=== PATIENT | male | born 1995 ===

== ENCOUNTER 2018-03-16 18:02 | Emergency (ER) | payer MEDICAID ==
[2018-03-16 18:08] VITALS: RESP 18
--- NOTE | 2018-03-16 18:20 | ED PDOC ---
HPI: Psych/Substance Abuse Time Seen by Provider: 03/16/18 18:06 Chief Complaint (Nursing): Psychiatric Evaluation Chief Complaint (Provider): psych eval History Per: Patient, EMS Additional Complaint(s): 22 y/o male brought in by EMS for evaluation. As per EMS, patient was shoplifting in the supermarket and appeared altered at the scene. Patient awake, alert, oriented x3. Patient denies acute physical or psychiatric complaints. Denies drug/alcohol use Past Medical History Reviewed: Historical Data, Nursing Documentation, Vital Signs Vital Signs: Last Vital Signs Temp 98.8 F 03/16/18 18:05 Pulse 78 03/16/18 18:05 Resp 18 03/16/18 18:05 BP 121/80 03/16/18 18:05 Pulse Ox 99 03/16/18 18:05 - Medical History PMH: No Chronic Diseases - Surgical History Surgical History: No Surg Hx - Family History Family History: States: No Known Family Hx - Social History Current smoker - smoking cessation education provided: No Alcohol: Occasional Drugs: Denies - Allergies Allergies/Adverse Reactions: Allergies Allergy/AdvReac Type Severity Reaction Status Date / Time Unobtainable Allergy Verified 03/16/18 18:17 Review of Systems ROS Statement: Except As Marked, All Systems Reviewed And Found Negative Physical Exam - Reviewed Nursing Documentation Reviewed: Yes Vital Signs Reviewed: Yes - Physical Exam Appears: Positive for: Well, Non-toxic, No Acute Distress Head Exam: Positive for: ATRAUMATIC, NORMAL INSPECTION, NORMOCEPHALIC Skin: Positive for: Normal Color Eye Exam: Positive for: Normal appearance ENT: Positive for: Normal ENT Inspection Cardiovascular/Chest: Positive for: Regular Rate, Rhythm Respiratory: Positive for: Normal Breath Sounds Gastrointestinal/Abdominal: Positive for: Normal Exam Back: Positive for: Normal Inspection Extremity: Positive for: Normal ROM Neurologic/Psych: Positive for: Alert, Oriented (x3) - ECG O2 Sat by Pulse Oximetry: 99 - Progress ED Course And Treament: -accucheck -urine drug screen -crisis eval Patient evaluated by coke worker; does not meet criteria for admission at this time as per Dr. Pak Patient requires no further intervention in the ED and is stable for discharge at this time Return precautions given Sister here to take patient home Disposition - Clinical Impression Clinical Impression: Cognitive communication deficit - Patient ED Disposition Is Patient to be Admitted: No Counseled Patient/Family Regarding: Studies Performed, Diagnosis, Need For Followup - Disposition Disposition: Routine/Home Disposition Time: 21:13 Condition: STABLE
[2018-03-16 18:54] LABS: BARBITURATES, UR NEGATIVE (NEGATIVE); BENZODIAZEPINES, UR NEGATIVE (NEGATIVE); OPIATES, UR NEGATIVE (NEGATIVE); PHENCYCLIDINE, UR NEGATIVE (NEGATIVE)
[2018-03-16 22:12] VITALS: BP 120/78; PULSE 80; TEMP 98; O2SAT 100
== END 2018-03-16 22:13 | disposition home or self-care (01) ==
LOC: H.ER 18:02
DX: R41.841 Cognitive communication deficit (principal); Z00.8 Encounter for other general examination

== ENCOUNTER 2018-04-04 09:03 | Emergency (ER) | payer MEDICAID ==
[2018-04-04 09:07] VITALS: BP 131/76; PULSE 78; RESP 18; TEMP 98.4; O2SAT 99
--- NOTE | 2018-04-04 10:36 | ED PDOC ---
HPI: Psych/Substance Abuse Time Seen by Provider: 04/04/18 09:17 Chief Complaint (Nursing): Psychiatric Evaluation Chief Complaint (Provider): Psychiatric Evaluation History Per: Patient, EMS History/Exam Limitations: no limitations Onset/Duration Of Symptoms: Mins Current Symptoms Are (Timing): Still Present Additional Complaint(s): Patient is a 22 y/o male with a PMHx of schizophrenia who was brought into the ED by EMS for psychiatric evaluation. EMS states patient was reported acting bizarre in a [employer]. Patient denies physical complaint and suicidal or homi cidal ideation. Of note, patient does not take any medication for his schizophrenia. PCP: None Provided Past Medical History Reviewed: Historical Data, Nursing Documentation, Vital Signs Vital Signs: Last Vital Signs Temp 98.4 F 04/04/18 09:06 Pulse 78 04/04/18 09:06 Resp 18 04/04/18 09:06 BP 131/76 04/04/18 09:06 Pulse Ox 99 04/04/18 09:06 - Medical History PMH: Schizophrenia - Surgical History Surgical History: No Surg Hx - Family History Family History: States: No Known Family Hx - Allergies Allergies/Adverse Reactions: Allergies Allergy/AdvReac Type Severity Reaction Status Date / Time No Known Allergies Allergy Verified 04/04/18 10:36 Review of Systems Constitutional: Negative for: Other (physical complaints) Psych: Negative for: Suicidal ideation (or homicidal ideation) Physical Exam - Reviewed Nursing Documentation Reviewed: Yes Vital Signs Reviewed: Yes - Physical Exam Appears: Positive for: Non-toxic, No Acute Distress Head Exam: Positive for: ATRAUMATIC, NORMAL INSPECTION, NORMOCEPHALIC Skin: Positive for: Normal Color, Warm, Dry Eye Exam: Positive for: EOMI, Normal appearance, PERRL Neck: Positive for: Normal, Painless ROM, Supple Cardiovascular/Chest: Positive for: Regular Rate, Rhythm. Negative for: Murmur Respiratory: Positive for: Normal Breath Sounds. Negative for: Respiratory Distress Gastrointestinal/Abdominal: Positive for: Normal Exam, Soft. Negative for: Tenderness Back: Positive for: Normal Inspection. Negative for: L CVA Tenderness, R CVA Tenderness, Vertebral Tenderness Extremity: Positive for: Normal ROM. Negative for: Pedal Edema, Deformity Neurologic/Psych: Positive for: Alert, Oriented. Negative for: Motor/Sensory Deficits - ECG O2 Sat by Pulse Oximetry: 99 (RA) Pulse Ox Interpretation: Normal Medical Decision Making Medical Decision Making: Time: 1029 Impression: Bizarre behavior secondary to schizophrenia Plan: Crisis Evaluation Time: 1034 Medically cleared also by psychiatry. Scribe Attestation: Documented by Nacho Richardson, acting as a scribe for Adia Cevallos MD. Provider Scribe Attestation: All medical record entries made by the Scribe were at my direction and personally dictated by me. I have reviewed the chart and agree that the record accurately reflects my personal performance of the history, physical exam, medical decision making, and the department course for this patient. I have also personally directed, reviewed, and agree with the discharge instructions and disposition. Disposition - Clinical Impression Clinical Impression: Schizophrenia - Disposition Disposition: Routine/Home Disposition Time: 10:35 Condition: STABLE Additional Instructions: FOLLOW-UP ADVISED. Instructions: Schizophrenia Forms: [employer] (Angolan)
== END 2018-04-04 10:48 | disposition home or self-care (01) ==
LOC: H.ER 09:03
DX: F20.9 Schizophrenia, unspecified (principal)

== ENCOUNTER 2018-05-06 01:18 | Emergency (ER) | payer MEDICAID, OTHER ==
--- NOTE | 2018-05-06 02:03 | ED PDOC ---
HPI: General Adult Time Seen by Provider: 05/06/18 01:26 Chief Complaint (Nursing): Medical Clearance Chief Complaint (Provider): clearance for incarceration History Per: Patient Additional Complaint(s): 22 y/o male here in police custody for clearance for incarceration. Patient states he was recently diagnosed with schizophrenia but has not been taking his medications for 3 months due to insurance issues and he does not know the names. Patient denies suicidal/homicidal ideations, hallucinations, acute physical complaints. Past Medical History Reviewed: Historical Data, Nursing Documentation, Vital Signs Vital Signs: Last Vital Signs Temp 98.2 F 05/06/18 01:22 Pulse 83 05/06/18 01:22 Resp 17 05/06/18 01:22 BP 123/88 05/06/18 01:22 Pulse Ox 99 05/06/18 01:22 - Medical History PMH: Schizophrenia - Surgical History Surgical History: No Surg Hx - Family History Family History: States: No Known Family Hx - Allergies Allergies/Adverse Reactions: Allergies Allergy/AdvReac Type Severity Reaction Status Date / Time No Known Allergies Allergy Verified 04/04/18 10:36 Review of Systems ROS Statement: Except As Marked, All Systems Reviewed And Found Negative Physical Exam - Reviewed Nursing Documentation Reviewed: Yes Vital Signs Reviewed: Yes - Physical Exam Appears: Positive for: Well, Non-toxic, No Acute Distress Head Exam: Positive for: ATRAUMATIC, NORMAL INSPECTION, NORMOCEPHALIC Skin: Positive for: Normal Color Eye Exam: Positive for: Normal appearance ENT: Positive for: Normal ENT Inspection Cardiovascular/Chest: Positive for: Regular Rate, Rhythm Respiratory: Positive for: Normal Breath Sounds Gastrointestinal/Abdominal: Positive for: Normal Exam Extremity: Positive for: Normal ROM Neurologic/Psych: Positive for: Alert, Oriented (x3), Mood/Affect (internally preoccupied) - ECG O2 Sat by Pulse Oximetry: 99 - Progress ED Course And Treament: -crisis eval Patient was evaluated by duralumin metalworker and cleared for discharge as per Dr. [place] Disposition - Clinical Impression Clinical Impression: Schizophrenia - Patient ED Disposition Is Patient to be Admitted: No Counseled Patient/Family Regarding: Diagnosis, Need For Followup - Disposition Referrals: [facility] [Outside] Disposition: Discharged/Transfer to Law Enforcement Disposition Time: 02:56 Condition: STABLE Additional Instructions: Patient medically and psychiatrically cleared for incarceration Instructions: Schizophrenia
[2018-05-06 09:23] VITALS: BP 119/86; PULSE 80; RESP 16; TEMP 98.2; O2SAT 98
== END 2018-05-06 03:09 | disposition home or self-care (01) ==
LOC: H.ER 01:18
DX: F20.9 Schizophrenia, unspecified (principal)